=== PATIENT | female | born 1955 | race Two or more races ===

== ENCOUNTER 2021-05-15 05:36 | Day surgery (SDC) | payer OTHER ==
[~2021-05-15 05:36] MED LIST: METFORMIN HCL500 M3; TIROSINT75 MCG; ZESTRIL30 MG
[2021-05-15] MEDS ORDERED: COLACE100 MG PO (09:29)
[2021-05-15] MEDS ORDERED: PERCOCET 5-3251 EACH PO (09:29)
== END 2021-05-15 15:55 | disposition home or self-care (01) ==
LOC: CIR.AMB 05:36
PROVIDERS: ATTEND Surgery
DX: K60.3 Anal fistula (principal); Z20.822 Contact with and (suspected) exposure to COVID-19

== ENCOUNTER 2021-07-10 05:31 | Day surgery (SDC) | payer OTHER ==
[~2021-07-10 05:31] MED LIST changes: +COLACE100 MG PO; +PERCOCET 5-3251 EACH PO
[2021-07-10] MEDS ORDERED: METRONIDAZOLE500 MG PO (08:26)
[2021-07-10] MEDS ORDERED: ULTRACET PO (08:26)
[2021-07-10] MEDS ORDERED: COLACE100 MG PO (08:27)
== END 2021-07-10 13:55 | disposition home or self-care (01) ==
LOC: CIR.AMB 05:31
PROVIDERS: ATTEND Surgery
DX: K60.3 Anal fistula (principal)